=== PATIENT | male | born 1955 | race Caucasian/White ===

== ENCOUNTER 2018-09-03 09:05 | Outpatient (CLI) | payer MEDICARE ==
[~2018-09-03] VITALS: Ht 177.8 cm; Wt 111.6 kg
[2018-09-03] VITALS (8 sets, daily range): BP systolic 141–158; BP diastolic 90–107; PULSE 65–96; TEMP 97.9
[~2018-09-03 09:05] MED LIST: CALCIUM 600/VIT1 CAP PO; COUMADIN 5MG5 MG/TAB PO; FLOMAX 0.40.4 MG/CAP PO; K-TAB10 PO; LANOXIN 0.120.125 MG PO; LANTUS100 U/ML SQ; LASIX 40MG TABL40 MG PO; NEURONTIN400 MG/CAP PO; PROSCAR 5MG5 MG PO; TOPROL XL100 MG PO; TYLENOL PM EXTR1 TA1 PO; ZESTRIL 20MG TA20 MG PO; ZYLOPRIM 100MG100 MG PO
[2018-09-03 09:35] LABS: INR 1.3 (0.8-3.0); PROTHROMBIN TIME 14.7 SECONDS (9.7-12.8)
[2018-09-03 09:38] LABS: CREATININE, serum 1.02 mg/dL (0.66-1.25)
== END 2018-09-03 14:03 | disposition home or self-care (01) ==
LOC: COL.RAD 09:05
PROVIDERS: Radiology Diagnostic Radiology
DX: G31.84 Mild cognitive impairment of uncertain or unknown etiology (principal); R93.0 Abnormal findings on diagnostic imaging of skull and head, not elsewhere classified; E11.9 Type 2 diabetes mellitus without complications
CPT/HCPCS: A9548; Q9965